=== PATIENT | female | born 1985 | race Two or more races ===

== ENCOUNTER 2019-01-18 22:27 | Emergency (ER) | payer SELFPAY ==
[~2019-01-18] VITALS: Ht 167.6 cm; Wt 59.5 kg
[2019-01-18 22:36] VITALS: BP 127/86
--- NOTE | 2019-01-18 23:45 | NUR ---
PT NOT IN LOBBY WHEN CALLED FOR ROOM.
--- NOTE | 2019-01-18 23:54 | NUR ---
PT NOT IN LOBBY WHEN CALLED FOR ROOM.
--- NOTE | 2019-01-19 00:34 | NUR ---
[id number]
== END 2019-01-19 00:36 | disposition left against medical advice (07) ==
LOC: ED 01-19 00:30
DX: R51 Headache (principal); Z53.21 Procedure and treatment not carried out due to patient leaving prior to being seen by health care provider